=== PATIENT | male | born 1985 | race Caucasian/White ===

== ENCOUNTER 2022-11-13 21:47 | Emergency (ER) | payer OTHER ==
[~2022-11-13] VITALS: Ht 170.1 cm; Wt 99.8 kg
[2022-11-13] MEDS ORDERED: PENICILLIN-VK500 MG PO (22:08)
[2022-11-13] MEDS ORDERED: HYDROCODONE-AC1 EACH PO (22:14)
[2022-11-15] MEDS ORDERED: AMOX-CLAV 875-1 EACH PO (17:05)
== END 2022-11-13 22:23 | disposition home or self-care (01) ==
LOC: ED 21:47
DX: K08.89 Other specified disorders of teeth and supporting structures (principal); Z87.891 Personal history of nicotine dependence